=== PATIENT | female | born 1970 | race Caucasian/White ===

== ENCOUNTER 2016-09-17 11:58 | Emergency (ER) | payer OTHER ==
--- NOTE | ~2016-09-17 | CR63 ---
[facility] A Service of [facility] RADIOLOGY TEXT RESULTS PATIENT: JEB BROWNING LOCATION: [facility] : 68 UNIT #: [id number] AGE: [address]: Ruddy Mott SEX: F ORDER DR: [id number] [facility] [address] [place], [place] [address] [id number] MR#: [id number] #: [id number] NAME: JEB BROWNING : 1970 SEX: F STUDY DATE/TIME: 09/17/2016 1252 UNIT: [facility]RI ROOM: STUDY DESCRIPTION: CR Chest 2 View Attending Physician: Ruddy Mott Ordering Physician: Ruddy Mott Primary Care Physician: Ramiro Dillon M.D. MEDICAL IMAGING REPORT This report is preliminary unless electronic signature is present EXAM Chest 2 views 09/17/2016 1252 hours HISTORY Patient complains of chest pain today. Patient was wrestling with her son who fell upon her chest and injured her. COMPARISON 12/29/2008 FINDINGS Upright PA and lateral views of the chest demonstrate normal cardiac, mediastinal and hilar contours. There is stable benign calcified granulomatous changes. The lungs are well expanded and clear. There is no pleural effusion or pneumothorax. No rib or thoracic spine fracture is seen. Clavicles are intact. IMPRESSION No acute cardiopulmonary findings. There is no pleural effusion, pneumothorax or fracture seen. There is hardware anteriorly at the cervicothoracic junction. Dictated by... Patricia Acuna M.D. THIS IS AN ELECTRONICALLY VERIFIED REPORT Patricia Acuna M.D. at 09/17/2016 4:01 PM JOHN/diego TD: 09/17/2016 15:21 JOB #: [id number] MEDICAL IMAGING REPORT [facility] A Service [facility] RADIOLOGY TEXT RESULTS PATIENT: JEB BROWNING LOCATION: [facility] : 68 UNIT #: [id number] AGE: [address]: Ruddy Mott SEX: F ORDER DR: Page 1 of 1 COPY
== END 2016-09-17 14:10 | disposition home or self-care (01) ==
LOC: CED 11:58 → CFTX 11:58
DX: S20.211A Contusion of right front wall of thorax, initial encounter (principal); F41.9 Anxiety disorder, unspecified; F32.9 Major depressive disorder, single episode, unspecified; J44.9 Chronic obstructive pulmonary disease, unspecified; F17.210 Nicotine dependence, cigarettes, uncomplicated; W50.0XXA Accidental hit or strike by another person, initial encounter; Y93.72 Activity, wrestling
CPT/HCPCS: 71020; 99284